=== PATIENT | female | born 1965 | race Caucasian/White ===

== ENCOUNTER → 2018-09-24 | Outpatient (CLI) | payer BC, OTHER | LOC: CIMAGING 14:41 | PROVIDERS: ATTEND Family Medicine | DX: M54.5 Low back pain (principal); M51.37 Other intervertebral disc degeneration, lumbosacral region | CPT/HCPCS: 72100-PO ==

== ENCOUNTER → 2018-10-04 | Outpatient (CLI) | payer BC | LOC: CIMAGING 10:30 | PROVIDERS: ATTEND Family Medicine | DX: Z12.31 Encounter for screening mammogram for malignant neoplasm of breast (principal) ==

== ENCOUNTER → 2018-10-14 | Outpatient (CLI) | payer BC | LOC: BRMIMAGING 09:45 | PROVIDERS: ATTEND Family Medicine | DX: R92.8 Other abnormal and inconclusive findings on diagnostic imaging of breast (principal) | CPT/HCPCS: 76641-PO ==